=== PATIENT | female | born 1985 | race Caucasian/White ===

== ENCOUNTER 2017-06-15 09:32 | Emergency (ER) | payer SELFPAY ==
[~2017-06-15] VITALS: Wt 90.3 kg
[2017-06-15] MEDS ORDERED: KETOROLAC 60 MG INJ IM STA (10:35)
--- NOTE | 2017-06-15 10:43 | ERD ---
ER Documentation Chief Complaint Chief Complaint RIGHT LOWER BACK PAIN RADIATING TO RIGHT LEG, NO TRAUMA HPI 31-year-old female who presents emergency department for lower back pain that started yesterday. Pain radiates to her right lower extremity. Patient is insisting lumbar spine x-ray. LMP: 2 weeks ago. A0. Denies headache, dizziness, throat pain, difficulty swallowing, shoulder pain, chest pain, abdominal pain, coughing, difficulty breathing when lying flat, nausea, vomiting, diarrhea, constipation, loss of bowel and bladder control, changes in bowel and bladder habits, , or possibility of being , urinary symptoms, vaginal bleeding, vaginal discharge, recent long travel, recent exposure to any illness, recent antibiotic use in the last 3 months, fever, chills. No known drug allergies. Past medical history of sciatica. No surgical history. Medication: Motrin. 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 Denies smoking cigarettes, use of illegal drugs. ROS All systems reviewed and are negative except as per history of present illness. Medications Home Meds Active Scripts Cyclobenzaprine Hcl* (Cyclobenzaprine Hcl*) 10 Mg Tablet, 10 MG PO Q12 Y for MUSCLE SPASMS, #20 TAB Prov:PASILABAN,KLAR F 06/15/17 Ibuprofen* (Motrin*) 800 Mg Tab, 800 MG PO Q8 Y for PAIN AND OR ELEVATED TEMP, # 30 TAB Prov:PASILABAN,KLAR F 06/15/17 Ibuprofen* (Motrin*) 800 Mg Tab, 800 MG PO Q6, #30 TAB Prov:PASILABAN,KLAR F 06/15/17 Allergies Allergies: Coded Allergies: No Known Allergy (Unverified , 06/15/17) PMhx/Soc Medical and Surgical Hx: pt denies Surgical Hx History of Surgery: No Anesthesia Reaction: No Hx Neurological Disorder: No Hx Respiratory Disorders: No Hx Cardiac Disorders: No Hx Psychiatric Problems: No Hx Miscellaneous Medical Probl: Yes (lower back pain) Hx Alcohol Use: Yes (social) Hx Substance Use: No Hx Tobacco Use: No Physical Exam Vitals Vital Signs Date Time Temp Pulse Resp B/P Pulse Ox O2 Delivery O2 Flow Rate FiO2 06/15/17 09:38 98.9 92 17 127/73 98 Physical Exam Const: [] Head: Atraumatic Eyes: Normal Conjunctiva ENT: Normal External Ears, Nose and Mouth. Neck: Full range of motion..~ No meningismus. Resp: Clear to auscultation bilaterally Cardio: Regular rate and rhythm, no murmurs Abd: Soft, non tender, non distended. Normal bowel sounds Skin: No petechiae or rashes Back: Positive straight leg test bilaterally. L-spine tenderness to palpation. L-spine has no bulging/discoloration. No saddle anesthesia. Bilateral hips are stable and unremarkable. C-spine/T-spine are in midline with no swelling/deformity/discoloration/point of tenderness and is good and full range of motion. No saddle anesthesia. Bilateral upper and lower extremities is no deformities. No calf tenderness bilaterally. No neurovascular deficits. No neurological deficits. Ext: No cyanosis, or edema Neur: Awake and alert Psych: Normal Mood and Affect Results 24 hrs Laboratory Tests Test 06/15/17 10:43 Bedside Urine pH (LAB) 5.5 Bedside Urine Protein (LAB) Negative Bedside Urine Glucose (UA) Negative Bedside Urine Ketones (LAB) Negative Bedside Urine Blood Negative Bedside Urine Nitrite (LAB) Negative Bedside Urine Leukocyte Esterase (L 1+ Current Medications Medications (Trade) Dose Ordered Sig/Jerilyn Route PRN Reason Start Time Stop Time Status Last Admin Dose Admin Ketorolac Tromethamine (Toradol) 60 mg ONCE STAT IM 06/15/17 10:35 06/15/17 10:37 DC 06/15/17 10:45 Procedures/MDM 31-year-old female who presents emergency department for lower back pain that started yesterday. Pain radiates to her right lower extremity. Patient is insisting lumbar spine x-ray. LMP: 2 weeks ago. A0. Denies headache, dizziness, throat pain, difficulty swallowing, shoulder pain, chest pain, abdominal pain, coughing, difficulty breathing when lying flat, nausea, vomiting, diarrhea, constipation, loss of bowel and bladder control, changes in bowel and bladder habits, , or possibility of being , urinary symptoms, vaginal bleeding, vaginal discharge, recent long travel, recent exposure to any illness, recent antibiotic use in the last 3 months, fever, chills. No known drug allergies. Past medical history of sciatica. No surgical history. Medication: Motrin. 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 Denies smoking cigarettes, use of illegal drugs. Physical exam: Positive straight leg test bilaterally. L-spine tenderness to palpation. L-spine has no bulging/discoloration. No saddle anesthesia. Bilateral hips are stable and unremarkable. C-spine/T-spine are in midline with no swelling/deformity/discoloration/point of tenderness and is good and full range of motion. No saddle anesthesia. Bilateral upper and lower extremities is no deformities. No calf tenderness bilaterally. No neurovascular deficits. No neurological deficits. Disease process was explained to the patient. She verbalized understanding and agreed with the diagnostic tests, treatment, plan of care. X-ray of the lumbar spine: Unremarkable lumbar spine. POC urine : Negative. POC urine dip: Reviewed. Treatment: Toradol IM. Reevaluation: Denies headache, dizziness, blurry vision, neck pain, shoulder pain, chest pain, back pain, abdominal pain, nausea, vomiting. No episode of emesis in the emergency department. Alert and oriented 4. Speaks full and clear sentences. Respirations even and unlabored. Lung sounds clear to auscultation. Active bowel sounds. There is no right upper/right lower/ epigastric/left upper/left lower abdominal tenderness and light and deep palpation. Negative on Rovsings sign. Negative Michael sign. No peritoneal signs. Ambulatory with steady gait. No neurovascular deficits. No neurological deficits. No saddle anesthesia. Differential diagnosis: Herniated disc versus fracture versus contusion versus sprain versus sciatica versus chronic low back pain Final diagnosis: Sciatica, chronic low back pain Prescription: Flexeril. Motrin. Follow-up with PCP in the next 24-48 hours. PCP to refer patient to pain specialist in the next 24-48 hours. All questions and concerns are answered. Patient verbalized understanding and agreed with the plan of care. Hemodynamically stable on discharge. Departure Diagnosis: Primary Impression: Back pain Additional Impression: Sciatica Condition: Stable Additional Instructions: Follow-up with PCP in the next 24-48 hours. PCP to refer patient to pain specialist in the next 24-48 hours. All questions and concerns are answered. Patient verbalized understanding and agreed with the plan of care. ALEX JEAN BAPTISTE Jun 15, 2017 10:43
[2017-06-15 10:44] LABS: URINE BLOOD (Dip) POC Negative (NEGATIVE)
--- NOTE | 2017-06-15 12:05 | RADRPT ---
PROCEDURE: XR Lumbar Spine. CLINICAL INDICATION: Chronic low back pain. TECHNIQUE: AP, lateral, oblique and cone-down lateral view of the lumbar spine were obtained. COMPARISON: No prior studies are available for comparison. FINDINGS: The vertebral bodies are normal in height, density, and alignment. Mild straightening of the lumbar lordosis. Intervertebral disk spaces are well maintained. No vertebral body fracture or dislocation. No subluxation. The facet joints and posterior elements are unremarkable. The visualized sacrum are unremarkable. 5 [id number] vertebrae. IMPRESSION: 1. Unremarkable lumbar spine. RPTAT:AAJJ Physician Angelo Date Time Electronically viewed and signed by Physician Angelo on 06/15/2017 12:05 ELIESER/
[2017-06-15] MEDS ORDERED: IBUP800T25 PO ×2 (12:22)
[2017-06-15] MEDS ORDERED: CYCL-319 PO (12:23)
== END 2017-06-15 12:40 | disposition home or self-care (01) ==
LOC: FTE 09:32
DX: M54.41 Lumbago with sciatica, right side (principal)
CPT/HCPCS: 72100; 81003; 96372; 99284; J1885